=== PATIENT | female | born 1970 | race American Indian/Alaskan Native ===

== ENCOUNTER → 2022-08-01 10:44 | Outpatient (BNVA) | payer OTHER, SELFPAY | PROVIDERS: Visit Provider Psychiatry & Neurology Psychiatry | DX: Z13.89 Encounter for screening for other disorder (principal) ==

== ENCOUNTER → 2022-10-10 15:58 | Outpatient (BNVA) | payer OTHER, SELFPAY | PROVIDERS: PCP Family Medicine; Visit Provider Psychiatry & Neurology Psychiatry ==

== ENCOUNTER → 2023-04-11 11:21 | Outpatient (BNVA) | payer OTHER, SELFPAY | PROVIDERS: PCP Family Medicine; Visit Provider Psychiatry & Neurology Psychiatry ==

== ENCOUNTER 2023-04-15 09:44 | Emergency (ER) | payer OTHER, SELFPAY ==
--- NOTE | ~2023-04-15 | US_ITS ---
EXAMINATION: US ABDOMEN LIMITED CLINICAL INFORMATION: Right upper quadrant epigastric, back pain. COMPARISON: None available. TECHNIQUE: Real-time imaging of the right upper quadrant abdominal viscera. Limited visualization due to bowel gas. FINDINGS: PANCREAS: Limited visualization of pancreatic tail. Imaged portion of pancreatic body is unremarkable. LIVER: Right hepatic 1.3 x 0.9 x 1.5 cm cyst difficult to fully characterize due to artifact related to anterior location. Mildly heterogeneous hepatic echotexture can sometimes be seen with hepatocellular disease. Correlation with liver function tests recommended. GALLBLADDER: No gallstones. No gallbladder wall thickening. COMMON BILE DUCT: Normal in caliber measuring 0.2 cm in diameter. RIGHT KIDNEY: No hydronephrosis. No renal calculi. Limited visualization. The kidney measures 10.9 cm in maximum dimension. FREE FLUID: None. US/US abdomen limited IMPRESSION: Right hepatic 1.3 x 0.9 x 1.5 cm cyst difficult to fully characterize due to artifact related to anterior location. Mildly heterogeneous hepatic echotexture can sometimes be seen with hepatocellular disease. Correlation with liver function tests recommended.
--- NOTE | ~2023-04-15 | CT_ITS ---
EXAMINATION: CT ABDOMEN AND PELVIS WITH CONTRAST CLINICAL INFORMATION: Upper abdominal pain and history of gastric bypass COMPARISON: 04/30/2011 TECHNIQUE: Multidetector volumetric images were obtained from the superior aspect of the liver through the pubic symphysis following administration 85 mL of Omnipaque 350 intravenous contrast. Sagittal and coronal reformatted images were obtained on the technologist's workstation. Oral contrast: No This CT examination was performed using dose optimization techniques as appropriate, variously including the following: *Automated exposure control *Adjustment of mA and/or kV according to patient size (this includes techniques or standardized protocols for targeted exams where dose is matched to indication/reason for exam; i.e. extremities or head) *Use of iterative reconstruction technique DLP: 666mGy-cm FINDINGS: LUNG BASES: The visualized lung bases are unremarkable. LIVER, GALLBLADDER, AND BILIARY TREE: There is low-attenuation lesion in the right lobe of the liver measured 1.4 x 0.9 cm consistent with the appearance of hepatic cyst. No evidence of intrahepatic solid masses or ductal dilatation. 2 other smaller size low-attenuation lesions seen in the right lobe of the liver most likely small cysts. The gallbladder is unremarkable with no evidence of radiopaque gallstones, gallbladder wall thickening, or obvious pericholecystic inflammatory changes PANCREAS: Unremarkable. SPLEEN: Unremarkable. ADRENAL GLANDS: Unremarkable KIDNEYS AND URETERS: The small parapelvic cysts on the left. BLADDER: Unremarkable. GASTROINTESTINAL TRACT: Patient is status post gastric bypass surgery with no evidence of obstruction of anastomosis. Appendix is not seen. There are mild changes of colonic diverticulosis but no evidence of diverticulitis. ABDOMINAL WALL: No significant hernia is appreciated. LYMPH NODES: Normal. VASCULAR: Unremarkable. PELVIC VISCERA: There is fluid in the endometrial canal and in the cervix. Correlate with clinical history and pelvic ultrasound. There is prominence of left adnexa. OSSEOUS STRUCTURES: Unremarkable. CT/CT abdomen pelvis w IV con IMPRESSION: 1. Status post gastric bypass surgery with no evidence of bowel obstruction. 2. Fluid in the endometrial canal and cervix and prominence of left adnexa. Correlate with clinical history and pelvic ultrasound. 3. Small hepatic cysts. 4. Parapelvic cysts in the left kidney. Fleischner guidelines were followed.
[2023-04-15 09:46] VITALS: BP 163/79; PULSE 61; RESP 19; TEMP 36.6; O2SAT 98; BMI 30.9
--- NOTE | 2023-04-15 09:51 | ECG_ITS ---
Test Reason : epigastric pain Blood Pressure : / mmHG Vent. Rate : 058 BPM Atrial Rate : 058 BPM P-R Int : 174 ms QRS Dur : 092 ms QT Int : 438 ms P-R-T Axes : 040 040 041 degrees QTc Int : 429 ms Sinus bradycardia Otherwise normal ECG No previous ECGs available Referred By: Generic ED Physician Electronically Signed By:JORGE SUERO MD
[2023-04-15 10:19] LABS: MANUAL DIFF FLAG NO
[2023-04-15 10:20] LABS: Basophils Percent Auto 0.3 % (0-2); Eosinophils Percent Auto 0.1 % (0-4); Hematocrit 39.3 % (37.0-47.0); Hemoglobin 12.8 g/dl (12.0-16.0); Imm Gran Abs Auto 0.02 X10*3/uL (0.00-0.03); Imm Gran Pct Auto 0.3 % (0.0-0.4); Lymphocytes Absolute Auto 0.8 X10*3/uL (1.2-4.9); Lymphocytes Percent Auto 10.9 % (20-40); Mean Corpuscular HGB Conc 32.6 g/dl (31.0-35.0); Mean Corpuscular Hemoglobin 31.2 pg (27.0-33.0); Mean Corpuscular Volume 95.9 fL (80.0-98.0); Mean Platelet Volume 8.8 fL (9.4-12.3); Monocytes Absolute Auto 0.5 X10*3/uL (0.1-1.2); Monocytes Percent Auto 6.7 % (2-11); Neutrophils Absolute Auto 5.6 x10*3/uL (2.0-8.3); Neutrophils Percent Auto 81.7 % (45-73); Platelet Count 291 X10*3/uL (160-400); Red Cell Distribution Width 13.2 % (11.0-16.0); White Blood Count 6.9 X10*3/uL (4.8-10.8)
[2023-04-15 10:35] LABS: Alanine Aminotransferase 9 U/L (0-31); Albumin Level 4.2 g/dL (3.5-5.0); Alkaline Phosphatase 88 U/L (39-117); Anion Gap 8 (12-20); Aspartate Amino Transferase 15 U/L (5-31); Bilirubin Direct 0.1 mg/dL (0.0-0.5); Bilirubin Total 0.3 mg/dL (0.0-1.0); Blood Urea Nitrogen 10 mg/dL (9-16); Calcium 9.5 mg/dL (8.4-10.2); Carbon Dioxide 30 mmol/L (22-29); Chloride 106 mmol/L (96-108); Creatinine Clr Calc Pharmacy 100.3; Estimated Glomerular Filt Rate > 60; Glucose Random 104 mg/dL (60-115); Lipase 26 U/L (8-78); Potassium 3.6 mmol/L (3.3-5.1); Sodium 140 mmol/L (135-145); Total Protein 7.2 g/dL (6.5-8.0)
[2023-04-15 10:42] LABS: Troponin-I High Sensitivity < 2.7 ng/L (<3.5-17.0)
--- NOTE | 2023-04-15 16:02 | ED.GENADULT ---
HPI - General Adult General Chief complaint: Abdominal Pain Stated complaint: Gallbladder iss Time Seen by Provider: 04/15/23 15:47 History of Present Illness HPI narrative: The patient is a 52-year-old woman. She had gastric bypass surgery at [facility] 12 years ago. She thinks it might have been done by Dr. Haile. She says that last night she had a dinner of baked chicken and Kale. After dinner at around 21:00 she developed abdominal pain that persisted all night long. She thought that perhaps she was constipated. At 1 point this morning she had a large bowel movement and felt no better and ultimately she came to the emergency room. She says that when she arrived here her pain was a 10/10. It is since subsided somewhat to a 6/10. She has had nausea but no vomiting. No fever. She says she has never had pain like this before. She says that once she was treated for an ulcer after over using ibuprofen but she says the symptoms she had on this occasion were more severe than on the previous occasion. Related Data Home Medications Medication Instructions Recorded Confirmed gabapentin 100 mg capsule 200 mg PO BID 08/01/22 08/01/22 methocarbamol 500 mg tablet 500 mg PO TID PRN 08/01/22 08/01/22 oxycodone 5 mg tablet 5 - 10 mg PO Q6H PRN pain 08/01/22 08/01/22 pantoprazole 40 mg tablet,delayed 40 mg PO DAILY 08/01/22 08/01/22 release Previous Rx's Medication Instructions Recorded zolpidem 10 mg tablet 10 mg PO BEDTIME PRN insomnia #30 08/22/22 tabs oxcarbazepine 300 mg tablet 600 mg (2 x 300 mg) PO BEDTIME 90 01/28/23 days #180 tabs lamotrigine 150 mg tablet 300 mg (2 x 150 mg) PO BEDTIME 90 04/09/23 days #180 tabs zolpidem 6.25 mg tablet,extended 6.25 mg PO BEDTIME #30 tabs 04/11/23 release,multiphase famotidine 40 mg tablet 40 mg PO DAILY #14 tabs 04/15/23 Allergies Allergy/AdvReac Type Severity Reaction Status Date / Time No Known Allergies Allergy Verified 04/15/23 09:46 Review of Systems Review of Systems: Yes all other systems are reviewed and are negative [facility] Past Medical History Medical History (Updated 04/15/23 @ 19:06 by Shun Case MD) Bipolar 2 disorder Surgical History (Updated 03/27/23 @ 14:57 by Darlin Arcos) H/O gastric bypass Social History (System 03/27/23 @ 14:57 by Darlin Arcos) Household Members: Spouse Smoked in Last 30 Days: No Use of substances other than those prescribed or required for medical reasons: No Advance Directives: No Advance Directives Information Provided: No Physical Exam ED Vital Signs: Vital Signs - 24 hr 04/15/23 09:46 04/15/23 16:43 04/15/23 19:19 Temperature 98 F 98.4 F 98.1 F Pulse Rate 61 54 56 Respiratory Rate 19 18 Blood Pressure 163/79 H 136/64 150/68 H Pulse Oximetry 98 100 100 Oxygen Delivery Method Room Air Room Air Room Air BMI result Body Mass Index 30.9 Const Other: Patient is awake and alert. Does not appear obviously ill or in distress. HENMT Other: The appearance of the face is unremarkable. Mucous membranes moist. Eyes Other: Pupils are round equal, conjunctivae are clear Resp Other: Lungs are clear bilaterally, no respiratory distress or increased work of breathing Cardio Other: Regular rate and rhythm without murmur GI Other: The patient is tender across the upper abdomen. Maximal tenderness seems to be in the epigastrium. Lower abdomen is relatively nontender. Skin Other: Skin is dry and unremarkable Neuro Other: The patient is awake and alert with normal mental status and seems grossly neurologically intact Extrem Other: No peripheral edema Medications Administered Discontinued Medications Generic Name Dose Route Start Last Admin Trade Name Jakubq PRN Reason Stop Dose Admin Famotidine 40 mg 04/15/23 19:05 04/15/23 19:12 Famotidine 20 Mg Tablet PO 04/15/23 19:06 40 mg ONCE ONE Administration Sodium Chloride 1,000 mls @ 999 mls/hr 04/15/23 16:00 04/15/23 17:42 Ns IV 04/15/23 17:00 Infused .Q1H1M ROBYN Infusion Iohexol 85 ml 04/15/23 16:34 04/15/23 16:34 Iohexol 350 Mg/Ml 100 Ml Infus..Btl IV 04/15/23 16:35 85 ml ONCE ONE Administration Medical Decision Making Medical Decision Making [facility] Narrative: The patient is a 52-year-old woman who has a history of gastric bypass surgery 12 years ago. She presents with abdominal pain that started last night and which she describes as severe. The patient had labs and a right upper quadrant ultrasound done initially. These were unremarkable. The patient has some upper abdominal tenderness. Given her history of gastric bypass surgery and given that she says this is the worst episode of abdominal pain she has had since the surgery we also obtained a CT scan of the abdomen and pelvis to look for any possible complication of her surgery. CT scan did not show any acute findings related to her surgery. There are some findings related to the uterus and left adnexa but I think these are incidental findings. The patient will be started on famotidine in case this is gastritis. She should follow-up with her PCP. She should get a nonemergency ultrasound to follow-up on the findings in the pelvis on CT scan. She should return if worse. Lab Data 04/15/23 10:13 04/15/23 10:13 Labs: Lab Results 04/15/23 Range/Units 10:13 WBC 6.9 (4.8-10.8) X10*3/uL RBC 4.10 L (4.20-5.50) X10*6/uL Hgb 12.8 (12.0-16.0) g/dl Hct 39.3 (37.0-47.0) % MCV 95.9 (80.0-98.0) fL MCH 31.2 (27.0-33.0) pg MCHC 32.6 (31.0-35.0) g/dl RDW 13.2 (11.0-16.0) % Plt Count 291 (160-400) X10*3/uL MPV 8.8 L (9.4-12.3) fL Immature Gran % (Auto) 0.3 (0.0-0.4) % Neut % (Auto) 81.7 H (45-73) % Lymph % (Auto) 10.9 L (20-40) % [place] % (Auto) 6.7 (2-11) % Eos % (Auto) 0.1 (0-4) % Baso % (Auto) 0.3 (0-2) % Lymph # (Auto) 0.8 L (1.2-4.9) X10*3/uL [place] # (Auto) 0.5 (0.1-1.2) X10*3/uL Eos # (Auto) 0.0 (0.0-0.4) X10*3/uL Baso # (Auto) 0.0 (0.0-0.2) X10*3/uL Abs Immat Gran (auto) 0.02 (0.00-0.03) X10*3/uL Absolute Neuts (auto) 5.6 (2.0-8.3) x10*3/uL Absolute Nucleated RBC 0.000 (0.0-0.012) X10*3/uL Nucleated RBC % (auto) 0.0 (0.0-0.2) /100WBC Sodium 140 (135-145) mmol/L Potassium 3.6 (3.3-5.1) mmol/L Chloride 106 (96-108) mmol/L Carbon Dioxide 30 H (22-29) mmol/L Anion Gap 8 L (12-20) BUN 10 (9-16) mg/dL Creatinine 0.67 (0.5-1.4) mg/dL Estim Creat Clear Calc 100.3 Estimated GFR > 60 Random Glucose 104 (60-115) mg/dL Calcium 9.5 (8.4-10.2) mg/dL Total Bilirubin 0.3 (0.0-1.0) mg/dL Direct Bilirubin 0.1 (0.0-0.5) mg/dL AST 15 (5-31) U/L ALT 9 (0-31) U/L Alkaline Phosphatase 88 (39-117) U/L Troponin I High Sens < 2.7 (<3.5-17.0) ng/L Total Protein 7.2 (6.5-8.0) g/dL Albumin 4.2 (3.5-5.0) g/dL Lipase 26 (8-78) U/L Discharge Plan Discharge Clinical Impression: Acute upper abdominal pain Patient Disposition: Home, Self-Care Instructions: Gastritis (DC) Additional Instructions: Fortunately your testing in the emergency room today is very reassuring. There does not seem to be any dangerous process at work. Your pain may be related to a stomach acid problem. You may have a condition known as ?gastritis. ? Please take the famotidine prescribed once a day. This is an acid reducing medication. It might also be good for you to get some kind of xfxn-cde-obizqyf antacid like Pepto-Bismol which you can try on an as-needed basis. Please contact your primary care provider tomorrow to set up a follow-up appointment in the next week or 2 to discuss this further. Additionally you have some subtle findings of fluid in your uterus and near your left ovary. The significance of this finding on the CT scan is unclear. Recommendation is for an outpatient ultrasound in the next few weeks. Please discuss this with your primary care provider as well. Return to the emergency room if significantly worse. Prescriptions: New famotidine 40 mg tablet 40 mg PO DAILY Qty: 14 0RF No Action zolpidem 10 mg tablet 10 mg PO BEDTIME PRN (Reason: insomnia) Qty: 30 2RF oxcarbazepine 300 mg tablet 600 mg PO BEDTIME 90 Days Qty: 180 1RF lamotrigine 150 mg tablet 300 mg PO BEDTIME 90 Days Qty: 180 1RF gabapentin 100 mg capsule 200 mg PO BID methocarbamol 500 mg tablet 500 mg PO TID PRN oxycodone 5 mg tablet 5 - 10 mg PO Q6H PRN (Reason: pain) pantoprazole 40 mg tablet,delayed release (DR/EC) 40 mg PO DAILY zolpidem 6.25 mg tablet,ext release multiphase 6.25 mg PO BEDTIME Qty: 30 2RF Interventions: ED Discharge Assessment Last Done: 04/15/23 19:17 Discharge Date/Time: 04/15/23 19:29
[2023-04-15] MEDS: iohexoL 350 MG/ML 100 ML INFUS..BTL 85 ML IV (16:34)
[2023-04-15] MEDS: 0.9 % Sodium Chloride 1,000 ML 999 ML IV (16:41)
[2023-04-15 16:43] VITALS: BP 136/64; PULSE 54; TEMP 36.9; O2SAT 100
--- NOTE | 2023-04-15 16:45 | PC.NURSE ---
a&ox3, vss and up to date at this time. pt c/o 5/10 upper epigastric/abd pain. pt resting in stretcher in no apparent distress. IV fluids administered per provider order. respirations even and unlabored. pt awaiting results from CT at this time.
[2023-04-15] MEDS: Famotidine 20 MG TABLET 40 MG PO (19:12)
[2023-04-15 19:19] VITALS: BP 150/68; PULSE 56; RESP 18; TEMP 36.7; O2SAT 100
== END 2023-04-15 19:29 | disposition home or self-care (01) ==
PROVIDERS: Emergency Provider Emergency Medicine; PCP Family Medicine
DX: R10.13 Epigastric pain (principal); R00.1 Bradycardia, unspecified; R10.11 Right upper quadrant pain; Z79.899 Other long term (current) drug therapy; Z98.84 Bariatric surgery status
CPT/HCPCS: 36415; 74177; 76705; 80048; 80076; 83690; 84484; 85025; 93005; 96360; 99284; 99285; Q9967

== ENCOUNTER 2023-06-16 07:57 | Outpatient (REF) | payer OTHER, SELFPAY ==
--- NOTE | ~2023-06-16 | US_ITS ---
EXAMINATION: US PELVIS COMPLETE CLINICAL INFORMATION: Abnormal findings on prior CT COMPARISON: CT abdomen and pelvis 04/15/2023 TECHNIQUE: Transabdominal and transvaginal imaging was performed. FINDINGS: The uterus is of normal size and echogenicity measuring 8.0 x 3.9 x 4.6 cm. A regular homogeneous endometrium is identified measuring 0.5 cm. Nabothian cysts in the cervix. Complex fluid is noted within the endocervical canal. Both ovaries are of normal echogenicity. The right measures 2.0 x 1.2 x 1.5 cm for a volume of 1.8 mL. The left measures 5.1 x 4.6 x 2.7 cm for a volume of 33.3 mL and is remarkable for a 3.9 cm left ovarian cyst a single thin septation, almost certainly benign. There is no pelvic free fluid. US/US pelvic and transvaginal IMPRESSION: 1. Endometrium measures 5 mm in thickness with complex fluid noted within the endocervical canal, recommend correlation with any symptoms of postmenopausal bleeding and gynecologic evaluation and management. 2. A 3.9 cm left ovarian cyst with a single thin septation, almost certainly benign, recommend annual follow-up ultrasound.
== END 2023-06-16 07:58 | disposition home or self-care (01) ==
LOC: HO.US 07:57
PROVIDERS: PCP Family Medicine; Visit Provider Family Medicine
DX: R93.89 Abnormal findings on diagnostic imaging of other specified body structures (principal)
CPT/HCPCS: 76830; 76856

== ENCOUNTER → 2023-07-01 10:45 | Outpatient (BNV) | payer OTHER, SELFPAY | PROVIDERS: PCP Family Medicine; Visit Provider Radiology Diagnostic Radiology | DX: Z12.31 Encounter for screening mammogram for malignant neoplasm of breast (principal) | CPT/HCPCS: 77063; 77067 ==

== ENCOUNTER 2023-07-01 10:47 | Outpatient (REF) | payer OTHER, SELFPAY | END 2023-07-01 10:48 | disposition home or self-care (01) | LOC: HO.MAMMO 10:47 | PROVIDERS: PCP Family Medicine; Visit Provider Family Medicine | DX: Z12.31 Encounter for screening mammogram for malignant neoplasm of breast (principal) | CPT/HCPCS: 77063; 77067 ==

== ENCOUNTER 2023-07-18 11:30 | Outpatient (AMB) | payer OTHER, SELFPAY ==
--- NOTE | 2023-07-18 11:45 | MHC.OFFVISPS ---
Intake Intake Visit Reasons: depression Allergies No Known Allergies Allergy (Verified 04/15/23 09:46) HPI- Psychiatric Chief Complaint: depression HPI Narrative: Pt has generally doing ok work going well had incidental seen ovarian cyst getting endometrial biopsy some problems with sleep had transient dep sx but mostly ok wishes t try and taper off ambien as possible Past Psychiatric History: History of significant depression with agitation diagnosed bipolar question of ADD was previously on Seroquel Mental Status Exam Mental Status Exam Narrative: Mental Status Exam Narrative: Appearance: Casually dressed Behavior: Cooperative appropriate psychomotor: Within normal limits Speech: Normal volume and prosody Thought proccess logical and goal-directed Thought content: Future oriented no self-harming thoughts Mood: some anxiety ok Affect: Appropriate to mood SI:denies HI:denies VH/AH:none Delusions: None Insight/judgment: Good insight and judgment Memory/cog: Intact Assessment and Plan Assessment & Plan (1) Bipolar 2 disorder: Status: Acute Code(s): F31.81 - Bipolar II disorder (2) H/O gastric bypass: Status: Acute Code(s): Z98.84 - Bariatric surgery status Plan try and taper ambien cont lamictal oxcarbazine no manic or sig dep sx under some medical stress Medications: Changed From zolpidem 10 mg PO BEDTIME PRN 30 tabs 2RF insomnia To zolpidem 5 - 10 mg (0.5 - 1 x 10 mg) PO BEDTIME PRN 30 tabs 2RF insomnia Discontinued zolpidem ER Discontinued Reason: Doctor's Order 6.25 mg PO BEDTIME 30 tabs 2RF Counseling and coordination of Care Details: I spent [] minutes reviewing the record, seeing the patient and documenting in the medical record. Counseling provided to the patient/caregiver as outlined below. Addressed patient/caregiver concerns regarding current medication regime including effective adherence. Addressed patient/caregiver concerns regarding diagnosis and prognosis including accuracy of diagnosis, prognosis over time, impact of diagnosis. Addressed patient/caregiver concerns regarding impact of recent stressors. [facility] Medical History (Updated 04/16/23 @ 00:01 by Alejandro Sarabia) Bipolar 2 disorder Surgical History (Updated 03/27/23 @ 14:57 by Darlin Arcos) H/O gastric bypass Social History (System 03/27/23 @ 14:57 by Darlin Arcos) Household Members: Spouse Social History: pt working pt works for marijuana [employer] . 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 Family history bipolar disorder Substance History: History of alcohol abuse Coding Level of Care Code Tele Est Pt Level 4 (43556) Diagnoses Bipolar 2 disorder F31.81 H/O gastric bypass Z98.84
== END 2023-07-18 12:00 | disposition home or self-care (01) ==
LOC: HO.HOP 07-22 16:54
PROVIDERS: PCP Family Medicine; Visit Provider Psychiatry & Neurology Psychiatry
DX: F31.81 Bipolar II disorder (principal); Z98.84 Bariatric surgery status
CPT/HCPCS: 99214

== ENCOUNTER → 2023-07-18 11:30 | Outpatient (BNVA) | payer OTHER, SELFPAY | PROVIDERS: PCP Family Medicine; Visit Provider Psychiatry & Neurology Psychiatry ==

== ENCOUNTER → 2023-07-22 16:47 | Outpatient (BNVA) | payer OTHER, SELFPAY | PROVIDERS: PCP Family Medicine; Visit Provider Psychiatry & Neurology Psychiatry ==

== ENCOUNTER 2023-10-14 10:43 | Emergency (ER) | payer OTHER, SELFPAY ==
[2023-10-14 10:50] VITALS: BP 135/63; PULSE 65; RESP 17; TEMP 36.8; O2SAT 98; BMI 33.6
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
[2023-10-14] MEDS: Bacitracin Oint 0.9 GM PACKET 1 APPL TOPICAL (11:44)
[2023-10-14 11:58] VITALS: BP 135/63; PULSE 65; RESP 17; TEMP 36.8; O2SAT 98
== END 2023-10-14 12:01 | disposition home or self-care (01) ==
PROVIDERS: Emergency Provider Emergency Medicine; PCP Family Medicine
DX: T24.212A Burn of second degree of left thigh, initial encounter (principal); X17.XXXA Contact with hot engines, machinery and tools, initial encounter; Y93.9 Activity, unspecified; Y92.9 Unspecified place or not applicable; Y99.9 Unspecified external cause status
CPT/HCPCS: 16020; 99282; 99283

== ENCOUNTER 2023-10-18 10:31 | Emergency (ER) | payer OTHER, SELFPAY ==
--- NOTE | ~2023-10-18 | US_ITS ---
EXAMINATION: US VENOUS ULTRASOUND WITH DOPPLER LOWER EXTREMITY, LEFT CLINICAL INFORMATION: Posterior thigh pain COMPARISON: None available. TECHNIQUE: Ultrasound of the deep veins is performed from the hip to the calf with compression sonography and color and pulse Doppler assessment. Spectral analysis with color-flow imaging is performed. FINDINGS: There is normal venous compression and respiratory variation and augmented flow. The visualized common femoral vein, superficial femoral vein, profunda femoral vein, popliteal vein, and the trifurcation region shows no evidence of deep venous thrombosis. There is no significant popliteal fossa cyst. If the patient's symptoms persist, followup ultrasound in 5 days 7 days might be of value to exclude proximal propagation from a non-visualized calf vein. US/US venous duplex LE LT IMPRESSION: No DVT demonstrated in the left lower extremity.
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
[2023-10-18 11:12] VITALS: BP 147/67; PULSE 55; RESP 16; TEMP 36.8; O2SAT 100; BMI 33.1
[2023-10-18 11:32] LABS: MANUAL DIFF FLAG NO
[2023-10-18 11:34] LABS: Basophils Absolute Auto 0.1 X10*3/uL (0.0-0.2); Basophils Percent Auto 0.8 % (0-2); Eosinophils Absolute Auto 0.1 X10*3/uL (0.0-0.4); Eosinophils Percent Auto 1.6 % (0-4); Hematocrit 39.5 % (37.0-47.0); Imm Gran Abs Auto 0.01 X10*3/uL (0.00-0.03); Imm Gran Pct Auto 0.2 % (0.0-0.4); Lymphocytes Absolute Auto 1.4 X10*3/uL (1.2-4.9); Mean Corpuscular HGB Conc 32.9 g/dl (31.0-35.0); Mean Corpuscular Hemoglobin 31.2 pg (27.0-33.0); Mean Corpuscular Volume 94.7 fL (80.0-98.0); Mean Platelet Volume 8.9 fL (9.4-12.3); Monocytes Absolute Auto 0.6 X10*3/uL (0.1-1.2); Monocytes Percent Auto 8.8 % (2-11); Neutrophils Absolute Auto 4.2 x10*3/uL (2.0-8.3); Neutrophils Percent Auto 66.6 % (45-73); Platelet Count 347 X10*3/uL (160-400); Red Blood Count 4.17 X10*6/uL (4.20-5.50); Red Cell Distribution Width 13.2 % (11.0-16.0); White Blood Count 6.3 X10*3/uL (4.8-10.8)
[2023-10-18 11:50] LABS: Alanine Aminotransferase 10 U/L (0-31); Albumin Level 4.6 g/dL (3.5-5.0); Alkaline Phosphatase 85 U/L (39-117); Anion Gap 12 (12-20); Aspartate Amino Transferase 16 U/L (5-31); Bilirubin Total 0.3 mg/dL (0.0-1.0); Blood Urea Nitrogen 14 mg/dL (9-16); Calcium 10.5 mg/dL (8.4-10.2); Carbon Dioxide 29 mmol/L (22-29); Chloride 106 mmol/L (96-108); Creatinine Clr Calc Pharmacy 90.5; Estimated Glomerular Filt Rate > 60; Glucose Random 89 mg/dL (60-115); Potassium 3.9 mmol/L (3.3-5.1); Sodium 143 mmol/L (135-145); Total Protein 7.8 g/dL (6.5-8.0)
[2023-10-18 12:00] VITALS: BP 135/66; PULSE 56; RESP 18; TEMP 35.6; O2SAT 97
--- NOTE | 2023-10-18 15:08 | PC.NURSE ---
ultrasound being completed at this time.
[2023-10-18 15:43] VITALS: PULSE 63; RESP 19; TEMP 36.7; O2SAT 97
[2023-10-18 15:46] VITALS: BP 135/66; PULSE 63; RESP 19; TEMP 36.7; O2SAT 97
== END 2023-10-18 15:46 | disposition home or self-care (01) ==
PROVIDERS: Physician Assistant Medical; Emergency Provider Student in an Organized Health Care Education/Training Program; PCP Family Medicine
DX: Z48.00 Encounter for change or removal of nonsurgical wound dressing (principal); M79.652 Pain in left thigh; L03.116 Cellulitis of left lower limb
CPT/HCPCS: 36415; 80053; 85025; 87040; 93971; 99283; 99284

== ENCOUNTER 2024-01-22 11:06 | Outpatient (AMB) | payer OTHER, SELFPAY ==
--- NOTE | 2024-01-22 11:29 | A.OFFPSYCH_ITS ---
Intake Intake Visit Reasons: depression Allergies gluten Allergy (Verified 10/18/23 11:15) Gastrointestinal Upset grape Allergy (Verified 10/18/23 11:15) Numbness NSAIDS (Non-Steroidal Anti-Inflamma Adverse Reaction (Verified 10/18/23 11:15) Gastrointestinal Hemorrhage HPI- Psychiatric Chief Complaint: depression HPI Narrative: Patient seen psychiatric follow-up patient was able to wean off of Ambien over the past few months. She had also been able to wean off oxycodone which she had been on status post knee surgery. Patient's mood has generally been stable no significant depressive or manic symptoms things going quite well on her marriage no new medical problems she continues to work for a [employer]. She continues on oxcarbazepine and Lamictal Past Psychiatric History: History of significant depression with agitation diagnosed bipolar question of ADD was previously on Seroquel Subjective Subjective Subjective Medication Compliance: Yes Side effects from medications: No Review of Systems Review of Systems neck pain hot flashes osteoarthritis has fibromyalgia periods of fatigue Mental Status Exam Mental Status Exam Narrative: Mental Status Exam Narrative: Appearance: Casually dressed Behavior: Cooperative appropriate psychomotor: Within normal limits Speech: Normal volume and prosody Thought proccess logical and goal-directed Thought content: Future oriented no self-harming thoughts some focused on arthritis fibromyalgia question Focused on healthy choices in her life Mood: some anxiety ok Affect: Appropriate to mood SI:denies HI:denies VH/AH:none Delusions: None Insight/judgment: Good insight and judgment Memory/cog: Intact Assessment and Plan Assessment & Plan (1) Bipolar 2 disorder: Status: Acute Code(s): F31.81 - Bipolar II disorder (2) H/O gastric bypass: Status: Acute Code(s): Z98.84 - Bariatric surgery status Plan Patient status post bypass check CBC Chem profile iron levels B12 folate oxcarbazepine can contribute to hyponatremia patient aware. Mood stable continue Lamictal oxcarbazepine feels generally stable at work and at home working on healthier choices for herself and aware potential addiction tendencies in herself Medications: Refilled lamotrigine 300 mg (2 x 150 mg) PO BEDTIME 180 tabs 1RF oxcarbazepine 600 mg (2 x 300 mg) PO BEDTIME 180 tabs 1RF 90 days Discontinued zolpidem Discontinued Reason: Patient no longer taking 5 - 10 mg (0.5 - 1 x 10 mg) PO BEDTIME PRN 30 tabs 2RF insomnia Orders: Orders Comprehensive Met. Panel Today D64.9 - Anemia, unspecified, E61.1 - Iron deficiency, F31.81 - Bipolar II disorder, Z98.84 - Bariatric surgery status Lamotrigine Lamictal Today D64.9 - Anemia, unspecified, E61.1 - Iron deficiency, F31.81 - Bipolar II disorder, Z98.84 - Bariatric surgery status IRON PROFILE Today D64.9 - Anemia, unspecified, E61.1 - Iron deficiency, F31.81 - Bipolar II disorder, Z98.84 - Bariatric surgery status Vitamin B12 and Folate Today D64.9 - Anemia, unspecified, E61.1 - Iron deficiency, F31.81 - Bipolar II disorder, Z98.84 - Bariatric surgery status Complete Blood Count Auto Diff Today D64.9 - Anemia, unspecified, E61.1 - Iron deficiency, F31.81 - Bipolar II disorder, Z98.84 - Bariatric surgery status TSH reflex Free T4 Today D64.9 - Anemia, unspecified, E61.1 - Iron deficiency, F31.81 - Bipolar II disorder, Z98.84 - Bariatric surgery status Counseling and coordination of Care Medication management counseling: Effectiveness, Side effects and Dosing range Diagnosis and Prognosis Counseling: Adequacy of current interventions Details: I spent [] minutes reviewing the record, seeing the patient and documenting in the medical record. Counseling provided to the patient/caregiver as outlined below. Addressed patient/caregiver concerns regarding current medication regime including effective adherence. Addressed patient/caregiver concerns regarding diagnosis and prognosis including accuracy of diagnosis, prognosis over time, impact of diagnosis. Addressed patient/caregiver concerns regarding impact of recent stressors. 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 Family history bipolar disorder Substance History: History of alcohol abuse Coding Level of Care Code Est Pt Level 3 (05619) Therapy 30m w/E&M (31042) Diagnoses Bipolar 2 disorder F31.81 H/O gastric bypass Z98.84
== END 2024-01-22 11:43 | disposition home or self-care (01) ==
LOC: HO.HOP 11:06
PROVIDERS: PCP Family Medicine; Visit Provider Psychiatry & Neurology Psychiatry
DX: F31.81 Bipolar II disorder (principal); Z98.84 Bariatric surgery status
CPT/HCPCS: 90833; 99213

== ENCOUNTER → 2024-01-22 11:06 | Outpatient (BNVA) | payer OTHER, SELFPAY | PROVIDERS: PCP Family Medicine; Visit Provider Psychiatry & Neurology Psychiatry ==

== ENCOUNTER 2024-04-16 14:28 | Outpatient (REF) | payer OTHER, SELFPAY ==
--- NOTE | ~2024-04-16 | US_ITS ---
EXAMINATION: US RETROPERITONEAL COMPLETE (RENAL) CLINICAL INFORMATION: Abdominal pain. Evaluate for renal stones. COMPARISON: CT abdomen/pelvis dated 04/15/2023. TECHNIQUE: Real-time imaging of the kidneys and bladder. FINDINGS: RIGHT KIDNEY: 11.1 x 5 x 5.7 cm (SAG x AP x TRV). The kidney is normal in size, contour, and echogenicity. Renal cortical thickness is normal. No calculi or focal parenchymal lesions. Mild prominence of the renal pelvis without significant hydronephrosis. LEFT KIDNEY: 12.1 x 5.1 x 6.3 cm (SAG x AP x TRV). The kidney is normal in size, contour, and echogenicity. Renal cortical thickness is normal. No calculi or focal parenchymal lesions. No hydronephrosis. BLADDER: Well distended and normal. Bilateral ureteral jets are demonstrated. Prevoid bladder volume is 245 mL. Postvoid bladder volume is 7 mL. US/US retroperitoneal comp IMPRESSION: 1. Mild prominence of the right renal pelvis without significant hydronephrosis. No right-sided nephrolithiasis. 2. No left-sided hydronephrosis or nephrolithiasis. 3. Sonographically unremarkable urinary bladder without significant postvoid residual. Electronically signed by: Evaristo Anthony MD 04/18/2024 06:43 PM HILDA
== END 2024-04-16 14:29 | disposition home or self-care (01) ==
LOC: HO.HMGCX 14:28
PROVIDERS: PCP Family Medicine; Visit Provider Family Medicine
DX: R10.9 Unspecified abdominal pain (principal)
CPT/HCPCS: 76770

== ENCOUNTER 2024-05-05 10:36 | Outpatient (AMB) | payer OTHER, SELFPAY ==
--- NOTE | 2024-05-05 11:01 | MHC.OFFVISPS ---
Intake Intake Visit Reasons: depression Allergies gluten Allergy (Verified 10/18/23 11:15) Gastrointestinal Upset grape Allergy (Verified 10/18/23 11:15) Numbness NSAIDS (Non-Steroidal Anti-Inflamma Adverse Reaction (Verified 10/18/23 11:15) Gastrointestinal Hemorrhage Medication List - Last Reconciled 05/05/24 by Aleksandar Chavez MD amoxicillin-pot clavulanate 875-125 mg 1 tab PO BID famotidine 40 mg PO DAILY gabapentin 300 mg PO DAILY lamotrigine 300 mg (2 x 150 mg) PO BEDTIME methocarbamol 500 mg PO TID PRN oxcarbazepine 600 mg (2 x 300 mg) PO BEDTIME 90 days pantoprazole 40 mg PO DAILY HPI- Psychiatric Chief Complaint: depression HPI Narrative: Pt seen in psych f/u pt trying to grow take care of herself better and to grow . Has chronic tax issues with the state. Cont on lamictal oxcarbazine. Has been trying to take care of herself better physically. Past Psychiatric History: History of significant depression with agitation diagnosed bipolar question of ADD was previously on Seroquel Mental Status Exam Mental Status Exam Narrative: Mental Status Exam Narrative: Appearance: Casually dressed Behavior: Cooperative appropriate psychomotor: Within normal limits Speech: Normal volume and prosody Thought proccess logical and goal-directed Thought content: Future oriented no self-harming thoughts some focused on arthritis fibromyalgia question Focused on healthy choices in her life Mood: some anxiety ok Affect: Appropriate to mood SI:denies HI:denies VH/AH:none Delusions: None Insight/judgment: Good insight and judgment Memory/cog: Intact Assessment and Plan Assessment & Plan (1) Bipolar 2 disorder: Status: Acute Code(s): F31.81 - Bipolar II disorder (2) H/O gastric bypass: Status: Acute Code(s): Z98.84 - Bariatric surgery status Plan pt feeling better trying to live a healthier life with her partner no medication changes noted Medications: Refilled oxcarbazepine 600 mg (2 x 300 mg) PO BEDTIME 180 tabs 1RF 90 days lamotrigine 300 mg (2 x 150 mg) PO BEDTIME 180 tabs 1RF Counseling and coordination of Care Pt. Self Management counseling: Mindfulness and Nutrition education and improvement Medication management counseling: Effectiveness, Side effects and Dosing range Diagnosis and Prognosis Counseling: Impact of diagnosis on life functions and Adequacy of current interventions Details: I spent [] minutes reviewing the record, seeing the patient and documenting in the medical record. Counseling provided to the patient/caregiver as outlined below. Addressed patient/caregiver concerns regarding current medication regime including effective adherence. Addressed patient/caregiver concerns regarding diagnosis and prognosis including accuracy of diagnosis, prognosis over time, impact of diagnosis. Addressed patient/caregiver concerns regarding impact of recent stressors. 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 Family history bipolar disorder Substance History: History of alcohol abuse Coding Level of Care Code Est Pt Level 4 (57958) Diagnoses Bipolar 2 disorder F31.81 H/O gastric bypass Z98.84
--- OUTSIDE RECORDS SUMMARY | 2024-05-06 00:36 | XMS_ITS | Continuity of Care Document ---
Author Organization [facility] Address [address] [place] [address] Insurance Providers Payer Plan Claims Address Claims Phone Policy Number Group Number Relation Employer Guarantor Name Guarantor Guarantor Address Guarantor Phone Amadou woodard [place] [id number] Paul Joualatl [address] [place] [id number] AMADOU Akin CLAYTON LAUREANO PA [address] [facility], [address] [id number] Paul Mims Apualatl [address] [place] [id number] AMADOU LAUREANO PA ONE [facility], [address] [address] [id number] Paul Mims Apualatl [address] [place] [id number] Problems Condition ICD9 code ICD10 code SNOMED code Start Date End Date S tatus Encounter for screening for other metabolic disorders Z13.228 Results No Results Allergies, adverse reactions, alerts No known allergies and adverse reactions Medications No administered medications reported Vital Signs No vital signs reported Social History No smoking Hx information available
== END 2024-05-05 12:05 | disposition home or self-care (01) ==
LOC: HO.HOP 10:36
PROVIDERS: PCP Family Medicine; Visit Provider Psychiatry & Neurology Psychiatry
DX: F31.81 Bipolar II disorder (principal); Z98.84 Bariatric surgery status
CPT/HCPCS: 99214

== ENCOUNTER 2024-08-30 10:34 | Outpatient (AMB) | payer OTHER, SELFPAY ==
--- NOTE | 2024-08-30 10:38 | MHC.OFFVISPS ---
Intake Intake Visit Reasons: depression Allergies gluten Allergy (Verified 10/18/23 11:15) Gastrointestinal Upset grape Allergy (Verified 10/18/23 11:15) Numbness NSAIDS (Non-Steroidal Anti-Inflamma Adverse Reaction (Verified 10/18/23 11:15) Gastrointestinal Hemorrhage Medication List - Last Reconciled 08/30/24 by Aleksandar Chavez MD amoxicillin-pot clavulanate 875-125 mg 1 tab PO BID famotidine 40 mg PO DAILY gabapentin 300 mg PO DAILY lamotrigine 300 mg (2 x 150 mg) PO BEDTIME methocarbamol 500 mg PO TID PRN oxcarbazepine 600 mg (2 x 300 mg) PO BEDTIME 90 days pantoprazole 40 mg PO DAILY HPI- Psychiatric Chief Complaint: depression HPI Narrative: Pt seen in f/u has had acid reflux s/p gastric bypass has gained wt s/p bypass . When son 14 he had child he now has he has child support granddaughter is now age 19 has developed a relationship. Mood stable no dep or mixed states. Has felt more stable gemerally sleep has improved. Stable on trileptal and lamictal. Very close with her mother who has been a strong woman survivor. Continues on Lamictal and Trileptal has been able to taper off of zolpidem Past Psychiatric History: History of significant depression with agitation diagnosed bipolar question of ADD was previously on Seroquel Mental Status Exam Mental Status Exam Narrative: Mental Status Exam Narrative: Appearance: Casually dressed Behavior: Cooperative appropriate psychomotor: Within normal limits Speech: Normal volume and prosody Thought proccess logical and goal-directed Thought content: Future oriented no self-harming thoughts some focused on getting life on a better track Focused on healthy choices in her life Mood: some anxiety ok Affect: Appropriate to mood SI:denies HI:denies VH/AH:none Delusions: None Insight/judgment: Good insight and judgment Memory/cog: Intact Assessment and Plan Assessment & Plan (1) GERD (gastroesophageal reflux disease): Status: Acute Code(s): K21.9 - Gastro-esophageal reflux disease without esophagitis (2) Bipolar 2 disorder: Status: Acute Code(s): F31.81 - Bipolar II disorder Medications: Refilled oxcarbazepine 600 mg (2 x 300 mg) PO BEDTIME 180 tabs 1RF 90 days lamotrigine 300 mg (2 x 150 mg) PO BEDTIME 180 tabs 1RF Counseling and coordination of Care Details-Self Mgmt counseling: Issues related to making healthy choices at work tendency to try to be more controlling to feel more recognition Details-Med Mgmt counseling: issues related to gastric bypass and gerd 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 Counseling provided to the patient/caregiver as outlined below. Addressed patient/caregiver concerns regarding current medication regime including effective adherence. Addressed patient/caregiver concerns regarding diagnosis and prognosis including accuracy of diagnosis, prognosis over time, impact of diagnosis. Addressed patient/caregiver concerns regarding impact of recent stressors. 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 Family history bipolar disorder Substance History: History of alcohol abuse Coding Level of Care Code Est Pt Level 3 (53290) Therapy 30m w/E&M (10586) Diagnoses GERD (gastroesophageal reflux disease) K21.9 Bipolar 2 disorder F31.81
--- OUTSIDE RECORDS SUMMARY | 2024-08-30 12:27 | XMS_ITS | Clinical Summary ---
Author Organization [facility] Address [address] [place] [address] Care Team Providers Care Brick Catcher Name Role Phone Jazmine Nath MD Primary Care Provider + [phone] Allergies No known active allergies Medications Medication Sig Dispensed Refills Start Date End Date Status OXcarbazepine (TRILEPTAL) 300 MG tablet Take 1 tablet (300 mg total) by mouth 2 (two) times a day. 0 Active methocarbamol (ROBAXIN) 500 MG tablet Take 1 tablet (500 mg total) by mouth 2 (two) times a day. 0 Active lamoTRIgine (LAMICTAL) 150 MG tablet Take 1 tablet (150 mg total) by mouth 2 (two) times a day. 0 Active zolpidem (AMBIEN) 10 MG tablet Take 1 tablet (10 mg total) by mouth every night at bedtime as needed for sleep. 0 Active gabapentin (NEURONTIN) 300 MG capsule Take 1 capsule (300 mg total) by mouth 3 (three) times a day. 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 01/21/2017 Morbid obesity due to excess calories 01/21/2017 H/O gastric bypass 01/21/2017 Anemia due to vitamin B12 deficiency 01/21/2017 Bipolar affective disorder, currently depressed, mild 01/21/2017 Social History Tobacco Use Types Packs/Day Years Used Date Smoking Tobacco: Never Smokeless Tobacco: Never Alcohol Use Standard Drinks/Week Comments Yes 0 (1 standard drink = 0.6 oz pur e alcohol) Social Sex and Gender Information Value Date Recorded Sex Assigned at Female 06/06/2022 4:05 PM EST Gender Identity Not on file Sexual Orientation Not on file Job Start Date Occupation Industry Not on file Not on file Not on file Last Filed Vital Signs Vital Sign Reading Time Taken Comments Blood Pressure 106/59 06/20/2022 2:07 PM EST Pulse 58 06/20/2022 2:07 PM EST Temperature 36.2 ??C (97.2 ??F) 06/20/2022 2:07 PM ES T Respiratory Rate 18 06/20/2022 2:07 PM EST Oxygen Saturation 100% 06/20/2022 2:07 PM EST Inhaled Oxygen Concentration - - Weight 88.5 kg (195 lb 1.7 oz) 06/10/2022 2:11 P M EST Height 162.6 cm (5' 4 ) 05/08/2018 2:15 PM EST Body Mass Index 33.49 05/08/2018 2:15 PM EST Plan of Treatment Health Maintenance Due Date Last Done Comments Hepatitis B Vaccines (1 of 3 - 3-dose series) 1969 Hepatitis C Screening 1969 COVID-19 Vaccine (#1) 1969 Depression Screening 1981 Preventative Health Evaluation 1987 DTap / Tdap / Td (1 - Tdap) 1988 Cervical Cancer Screening (P ap Smear) 1990 Colon Cancer Screening (Colonoscopy) 2014 Breast Cancer Screening (Mammogram) 2019 Shingrix-Zoster Vaccine (1 of 2) 2019 Influenza Vaccine (#1) 2024 Pneumococcal Vaccine Aged Out No long er eligible based on patient's age to complete this topic RSV Ped < 20 months Aged Out No longe r eligible based on patient's age to complete this topic Care Teams Brick Catcher Relationship Specialty Start Date End Date Jazmine Nath MD PCP - General Family Medicine 01/21/17
--- OUTSIDE RECORDS SUMMARY | 2024-08-30 12:27 | XMS_ITS | Clinical Summary ---
Author Organization [facility] Address [address] [place] [address] Care Team Providers Care Crown Presser Name Role Phone Jazmine Nath MD Primary Care Provider + Medical History Medical History Date Comments Palpitations 07/15/2011 DX:Palpitations Bipolar 1 disorder (CMS/HCC) 07/15/2011 DX: Bipolar 1 disorder (HCC) Obesity, unspecified 07/15/2011 DX:Obesity, unspecified Family History Medical History Relation Name Comments Other: cardiomyopathy Maternal Grandmother early Other: sudden cardiac Uncle 1 young, OR vs Vfib Relation Name Status Comments Maternal Grandmother Uncle 1 Uncle 2 Social History Tobacco Use Types Packs/Day Years Used Date Smoking Tobacco: Never Alcohol Use Standard Drinks/Week Comments Not Asked 0 (1 standard drink = 0.6 oz pur e alcohol) Comments Unknown Sex and Gender Information Value Date Recorded Sex Assigned at Not on file Legal Sex Female 10:05 AM EST Gender Identity Not on file Sexual Orientation Not on file Obstetrics History Plan of Treatment Health Maintenance Due Date Last Done Comments Breast Cancer Screening 1969 DTaP,Tdap,and Td Vaccines (1 - Tdap) 1988 Hepatitis B Vaccines (1 of 3 - 19+ 3-dose series) 1988 Cervical Cancer Screening: P ap Smear 1990 Pneumococcal Vaccine: 50+ Ye ars (1 of 1 - PCV) 2019 Zoster Vaccines (1 of 2) 2019 Cholesterol Screening (Lipid Panel) 06/24/2023 Colorectal Cancer Screening: Colonoscopy 06/24/2023 Depression Screening 06/24/2023 HIV Screening 06/24/2023 Hepatitis C Screening 06/24/2023 Social Influencers of Health Screening 06/24/2023 COVID-19 Vaccine ( - 2023-2 5 season) 2024 Influenza Vaccine (#1) 2024 HIB Vaccines Aged Out No longer eligi ble based on patient's age to complete this topic HPV Vaccines Aged Out No longer eligi ble based on patient's age to complete this topic Hepatitis A Vaccines Aged Out No long er eligible based on patient's age to complete this topic IPV Vaccines Aged Out No longer eligi ble based on patient's age to complete this topic MMR Vaccines Aged Out No longer eligi ble based on patient's age to complete this topic Meningococcal ACWY Vaccine Aged Out N o longer eligible based on patient's age to complete this topic Meningococcal B Vacine Aged Out No lo nger eligible based on patient's age to complete this topic Pneumococcal Vaccine: Pediat rics (0 to 5 Years) and At-Risk Patients (6 to 64 Years) Aged Out No longer eligible b ased on patient's age to complete this topic RSV Immunization Patients Un cleopatra 20 months Aged Out No longer eligible b ased on patient's age to complete this topic Varicella Vaccines Aged Out No longer eligible based on patient's age to complete this topic Care Teams Crown Presser Relationship Specialty Start Date End Date Jazmine Nath MD [address] [place] [address] PCP - General Family Medicine 01/21/17
--- OUTSIDE RECORDS SUMMARY | 2024-08-30 12:27 | XMS_ITS | Data Portability ---
Author Organization [facility], [facility] Address [address] [place] [address] Care Team Providers Care Cupola Charger Name Role Phone PARISH JULIA Primary Care Provider Assessment Encounter Date Assessment Date Assessment LastModified by Organization Details LastModified Time 02/18/2024 02/18/2024 A/ R trigger thumb after 1 prior cortisone injection in April 2023, recurrent P/we reviewed the pathophysiology of this problem and the recommended treatment plan moving forward. She understands that a second injection can be performed safely today, but if symptoms are recurrent after the second injection, the next step in treatment will be a trigger thumb release surgery. We have discussed the postoperative recovery course for the recommended surgery. Risks of surgery include but are not limited to: Infection, bleeding, damage normal tissues, need for future surgeries, and recurrent or recalcitrant symptoms after surgery. Questions asked and answered to the patient's satisfaction; surgery to be scheduled with my loan secretary if symptoms return after the second injection, she has been provided with my loan secretary's contact information and will call to schedule right trigger thumb release. stephenie Not available 02/18/2024 09:20:02 Plan of Treatment Reminders Order Date Submit Date Provider Last Modified By Organization Details Last Modified Time Details Appointments None record ed. Lab None record ed. Referral None record ed. Procedures None record ed. Surgeries None record ed. Imaging XR, knee, 3 view - room 214 rt knee 3v cw 025 06/11/19 25 [email or web address] [facility], [address], [place], [address], 15:26:57 Medication Orders None record ed. Patient TargetsNo targets recorded. Patient InstructionsNo instructions recorded. Reason for Referral None Reported. Results Created Date Observation Date Name Description Value Unit Range Abnormal Flag Note LastModifiedBy Organization Detail LastModifiedTime 01/24/20 24 08/31/2021 imagi ng/di agnos tic resul t No observ ation record ed. [email or web address] Not Available 12/26 08:04:49 01/24/20 24 09/16/2021 imagi ng/di agnos tic resul t No observ ation record ed. [email or web address] Not Available 12/26 08:04:50 01/24/20 24 06/24/2022 imagi ng/di agnos tic resul t No observ ation record ed. [email or web address] Not Available 12/26 08:05:31 06/11/19 25 06/11/2024 XR, knee, 3 view [email or web address]:/ [email or web address] ?Encry pted=s hAaTro YD8dLq bEUv6g %2BXZw aYqtaq 0bqfl% 2Fg9IQ a4ajBk vP9nXo QUaueC m3YtLR FvZlgJ JJ8mAn HZtai3 9a8537 AC0Kqb 3iCV6K jKiQtr MwF INTERFACE [facility] [address] [facility] [facility] [address], [place], [address], 06/11/2024 09:22:09 06/11/19 25 06/11/2024 XR, knee, 3 view [email or web address]:/ [email or web address] ?Encry pted=s hAaTro YD8dLq bEUv6g %2BXZw aYqtaq 0bqfl% 2Fg9IQ a4ajBk vP9nXo QUaueC m3YtLR FvZlgJ JJ8mAn HZtai3 7i8677 AC0Kqb 3iCV6K jKiQtr MwF INTERFACE [facility] [address] [facility] [address], [place], [address], 06/11/2024 09:22:11 Result Notes None recorded. 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 Procedures Surgical History Date Name Laterality Status Provider Name and Address Organization Details Recorded Time Trigger Finger Kenalog Injection completed Flavia Justice MD [address], [place], [address], [facility] 02/18/2024 09:18:41 Imaging Results Imaging Date Name Status LastModified by Organiz ation Details LastModified Time 08/31/2021 imaging/diag nostic result completed Information not available 01/24/2024 08:04:49 09/16/2021 imaging/diag nostic result completed Information not available 01/24/2024 08:04:50 06/24/2022 imaging/diag nostic result completed Information not available 01/24/2024 08:05:31 06/11/2024 XR, knee, 3 view completed INTER[facility] [address], [place], [address], 06/11/2024 09:22:09 06/11/2024 XR, knee, 3 view completed [facility] [address], [place], [address], 06/11/2024 09:22:11 Procedure Notes None recorded. Medical Equipment None Reported. Allergies Allergen ID Allergen Name Allergen Category Reaction Reaction Severity Criticality Documentation Date Start Date Code Code System Note Provider Name and Address Organization Details Recorded Time 58720 wheat gluten extract food Not available Not available Not available 07/28/20232010 62674 81 RxNorm Not Available [facility] 12:33:13 Medications Name Sig Start Date Stop Date Status Note LastModified by Organization Details LastModified Time methocarbam ol 500 mg tablet TAKE 1 TABLET BY MOUTH THREE TIMES A DAY NEEDED 06/11 completed Not Available Not Available Not Available clotrimazol e 10 mg manny LET 1 MANNY DISSOLVE IN MOUTH UP TO 4 TIMES A DAY FOR UP TO 2 WKS OR UNTIL RESOLUTIO N 06/11 completed Not Available Not Available Not Available lamotrigine 150 mg tablet TAKE TWO TABLETS BY MOUTH DAILY AT BEDTIME active Not Available Not Available No t Available paroxetine 10 mg tablet TAKE 1 TABLET BY MOUTH EVERY DAY active Not Available Not Available No t Available azithromyci n 250 mg tablet TAKE 2 TABLETS BY MOUTH TODAY, THEN TAKE 1 TABLET DAILY FOR 4 DAYS DIRECTED 06/11 completed Not Available Not Available Not Available oxcarbazepi ne 300 mg tablet TAKE 2 TABLETS BY MOUTH AT BEDTIME active Not Available Not Available No t Available amoxicillin 500 mg tablet TAKE 1 TABLET BY MOUTH EVERY 12 HOURS FOR 10 DAYS 06/11 completed Not Available Not Available Not Available pseudoephed rine-guaife nesin ER 80-700 mg tablet,exte nded release DO NOT DRIVE WHILE ON THIS MEDICATIO N 06/11 completed Statu s: 'Curr ent'; Not Available Not Available Not Available nystatin-tr iamcinolone 100,000 unit/g-0.1 % topical cream APPLY TO AFFECTED AREA SPRAINGLY 2 TO 4 TIMES A DAY STOP NCE RESOULATI ON ACHEVIED active Not Available Not Available No t Available gabapentin 100 mg capsule TAKE THREE CAPSULES BY MOUTH EVERY DAY IN THE MORNING AND TAKE TWO CAPSULES BY MOUTH EVERY DAY IN THE EVENING active Not Available Not Available No t Available zolpidem 10 mg tablet TAKE 1/2 - 1 TABLET BY MOUTH AT BEDTIME NEEDED FOR INSOMNIA active Not Available Not Available No t Available amoxicillin 875 mg-potassiu m clavulanate 125 mg tablet TAKE 1 TABLET BY MOUTH TWICE A DAY 06/11 completed Not Available Not Available Not Available zolpidem ER 6.25 mg tablet,exte nded release,mul tiphase TAKE ONE TABLET BY MOUTH EVERY EVENING AT BEDTIME active Not Available Not Available No t Available oxycodone HCl-oxycodo ne-ASA as directed 1 pills q 4-[address] while taikn this medicatio n 08/08 completed Statu s: 'Disc ontin ued'; Not Available Not Available Not Available Paxlovid 300 mg (150 mg x 2)-100 mg tablets in a dose pack TAKE THREE TABLETS BY MOUTH TWICE A DAY 06/11 completed Not Available Not Available Not Available Vitals Date Recorded Body height Body mass index (BMI) Body weight Provider Name and Address Organization Details Last Updated DateTime 02/18/2024 159.385 cm 33.4 kg/m2 43988.77 g DAVE ADAME [facility] 02/18/2024 08:54:46 Date Recorded Body height Body mass index (BMI) Body weight Provider Name and Address Organization Details Last Updated DateTime 06/11/2024 159.385 cm 35 kg/m2 88779.1 g irasema jacobson [facility] 06/11/2024 09:10:06 Social History None recorded. Functional Status None recorded. Mental Status None recorded. Family History Nothing Reported. Medical History No medical history recorded. Gynecological HistoryNo gynecological history recorded. Obstetrics History GPAL:G 0 P 0 0 0 0 Past Encounters Encounter ID Performer Location Encounter Start Date Encounter Closed Date Diagnosis/Indication Diagnosis SNOMED-CT Code Diagnosis ICD10 Code Diagnosis Note [id number] [facility] [address] [place] [address] 02/18/2024 08:40:56 03/01/2024 14:53:03 Trigger finger of right hand [id number] 5239716 M65.30 [id number] GAURANG L[facility] [address] [place] [address] 06/11/2024 09:04:34 06/22/2024 15:26:56 Knee joint prosthesis present [id number] 02 Z96.651 Health Concerns Section Related Observation LastModified by Organization Detai ls LastModified Time None Recorded Concern Status LastModified by Organization Details LastModified Time None Recorded Advance Directives Directive None Recorded Payers Encounter Date Sequence Insurance Name Policy Number Policy Perez Covered Member ID Perez Member ID Guarantor Name 02/18/[address] [place] [address] [id number] Chloé Joualatjuany [id number] Chloé Mims Apualatl 06/11/[address] [place] [address] [id number] Chloé Mims Apualatl [id number] Chloé Arroyo Notes Date Note Type Note Provider Name and Address Organization Details Recorded Time 02/18/2024 text/html 53 yo female see n in f/u for R trigger thumb, has been treated with 1 cortisone injection in Apr 2023, which gave her about 6 months of relief. Here today for second injection Flavia Justice MD [address] [place] [address] [address], [place], [address], [facility] 02/18/2024 09:20:24 06/11/2024 text/html I am seeing the patient today under the supervision of Dr. Griffin who was available but who did not see the patient. HPI: Chloé presents to the office today for an evaluation of her right knee. She is status post right total knee arthroplasty performed in 2022. She recently developed pain without a precipitating event. No recent trauma. Currently her symptoms have resolved. She indicates that she had pain over the anterior lateral aspect of the knee for approximately 2 weeks. She also has some minor discomfort in her IT band. She denies difficulty with weightbearing activities. No instability. She did not take any medication for her pain. She is here to ensure that her total knee arthroplasty looks okay. The patient symptoms have resolved since she scheduled her appointment. PMH/PSH/MEDS/ALL/FMH /SOC HX/ROS are reviewed in detail per my medical intake sheet. General Exam: Vital signs are as noted below Mental status: Alert and lucid. Normal insight, affect and grooming. CORN COOKER: Gross motor coordination is intact. No spasticity or clonus noted. EXAMINATION: The patient is well appearing and in no apparent distress. Alert and oriented x3. Gait is antalgic. {{Right* Left}} knee reveals a surgical scar over the anterior knee, otherwise no deformity upon inspection. No joint effusion, edema, erythema, ecchymosis, or lesions. Neurovascularly intact. No localized tenderness. ROM is 0-120 degrees. No crepitus noted. Stability intact with anterior, posterior, and varus/valgus stress at both 0 and 30 degrees of flexion. 5/5 strength. Calf/leg compartments soft and compressible. Labs performed on 06/04/2024 reveal a normal WBC, sed rate, and CRP. X-rays ordered, obtained and reviewed at [facility] today include 3 views of the right knee. Images reveal total knee arthroplasty components to be in good position and without evidence of loosening. No acute fracture or lesion. IMPRESSION: Status post right total knee arthroplasty PLAN: Clinically her knee looks great today. She is weightbearing without any difficulty. I informed her that if her pain returns she should call the office. All questions answered. Yarely Storm PA-C [address] [facility] [address], [place], [address], [place] [facility] 06/11/2024 22:20:48 OBGyn Episode No OBEpisode recorded.
== END 2024-08-30 15:22 | disposition home or self-care (01) ==
LOC: HO.HOP 10:34
PROVIDERS: PCP Family Medicine; Visit Provider Psychiatry & Neurology Psychiatry
DX: F31.81 Bipolar II disorder (principal); K21.9 Gastro-esophageal reflux disease without esophagitis
CPT/HCPCS: 90833; 99213

== ENCOUNTER 2025-02-25 15:30 | Outpatient (AMB) | payer OTHER, SELFPAY ==
--- NOTE | 2025-02-25 11:08 | MHC.OFFVISPS ---
Intake Intake Visit Reasons: depression Allergies gluten Allergy (Verified 10/18/23 11:15) Gastrointestinal Upset grape Allergy (Verified 10/18/23 11:15) Numbness NSAIDS (Non-Steroidal Anti-Inflamma Adverse Reaction (Verified 10/18/23 11:15) Gastrointestinal Hemorrhage HPI- Psychiatric Chief Complaint: depression HPI Narrative: Patient is a 54-year-old female history of bipolar 2. Pt seen in f/u son had child at 1 point he was born female ident as male. Pts son has difficult time with this.This grand son lives in [facility] [facility]. Patient has been interviewing for a new position has been somewhat excited about that. Mood generally stable no significant cycling has been able to get off Ambien. No new medical concerns. No significant manic or depressive sx Past Psychiatric History: History of significant depression with agitation diagnosed bipolar question of ADD was previously on Seroquel Mental Status Exam Mental Status Exam Narrative: Mental Status Exam Narrative: Appearance: Casually dressed Behavior: Cooperative appropriate psychomotor: Within normal limits Speech: Normal volume and prosody Thought proccess logical and goal-directed Thought content: Future oriented focused on relations with her grandson that was adopted focused on interview for new position Mood: some anxiety ok Affect: Appropriate to mood SI:denies HI:denies VH/AH:none Delusions: None Insight/judgment: Good insight and judgment Memory/cog: Intact Telehealth Telehealth Location of provider rendering services: practice address Location of patient: other (work) Patient Identification confirmed using: Name, : Yes Telehealth method: video Patient verbally consented to treatment: Yes Patient verbally consented to billing insurance company: Yes Minutes spent on Phone/Video with Pt.: 32 Assessment and Plan Assessment & Plan (1) Bipolar 2 disorder: Status: Acute Code(s): F31.81 - Bipolar II disorder (2) H/O gastric bypass: Status: Acute Code(s): Z98.84 - Bariatric surgery status Plan Patient stable on current regimen no complaints of side effects things stable at home in her relationship with her Continue Lamictal and oxcarbazepine no change indicated Counseling and coordination of Care Details-Self Mgmt counseling: family related issues Medication management counseling: Effectiveness, Side effects and Dosing range Diagnosis and Prognosis Counseling: Adequacy of current interventions Details: I spent [39] minutes reviewing the record, seeing the patient and documenting in the medical record. Counseling provided to the patient/caregiver as outlined below. Addressed patient/caregiver concerns regarding current medication regime including effective adherence. Addressed patient/caregiver concerns regarding diagnosis and prognosis including accuracy of diagnosis, prognosis over time, impact of diagnosis. Addressed patient/caregiver concerns regarding impact of recent stressors. [facility] Medical History (Updated 08/30/24 @ 10:58 by Aleksandar Chavez MD) GERD (gastroesophageal reflux disease) Bipolar 2 disorder Surgical History H/O gastric bypass Social History (System 03/27/23 @ 14:57 by Darlin Arcos) Household Members: Spouse Social History: pt working pt works for marijuana [employer] . 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 Family history bipolar disorder Substance History: History of alcohol abuse Coding Level of Care Code Tele Est Pt Level 4 (98452) Diagnoses Bipolar 2 disorder F31.81 H/O gastric bypass Z98.84
--- OUTSIDE RECORDS SUMMARY | 2025-02-25 15:32 | XMS_ITS | Encounter Summary ---
Author Organization [facility] Address [address] [place] [address] Phone Care Team Providers Care C Engineer Name Role Phone Jazmine Nath MD Primary Care Provider + Encounter Details Date Type Department Care Team (Late st Contact Info) Description 02/13/2023 Procedure Pass [facility] Admitting Dept Virtual Department [address] [place] [address] Social History Tobacco Use Types Packs/Day Years Used Date Smoking Tobacco: Never Smokeless Tobacco: Never Alcohol Use Standard Drinks/Week Comments Yes 0 (1 standard drink = 0.6 oz pur e alcohol) occasional Education Answer Date Recorded Are you interested in more education? Not on haris e 09/22/2022 Are you concerned about learning? Not on file 09/22/2022 No 09/22/2022 No 09/22/2022 Digital Access Answer Date Recorded No 10/18/2022 No 10/18/2022 Reliable internet access at home? Not on file 10/18/2022 Device with a working camera? Not on file Comments Unknown Sex and Gender Information Value Date Recorded Sex Assigned at Female 10/20/2018 8:15 AM EDT Legal Sex Female 5:14 PM EST Gender Identity Female 10/20/2018 8:15 AM EDT Sexual Orientation Lesbian or Rangel 10/20/2018 8: 15 AM EDT documented as of this encounter Plan of Treatment Not on file documented as of this encounter Visit Diagnoses Not on filedocumented in this encounter Care Teams C Engineer Relationship Specialty Start Date End Date Jazmine Nath MD [email or web address] PCP - General Family Medicine 09/28/18 documented as of this encounter Additional Source Comments The information contained in this document represents components of the legal health record. It is not the complete legal health record.[facility]
--- OUTSIDE RECORDS SUMMARY | 2025-02-25 15:32 | XMS_ITS | Clinical Summary ---
Author Organization [facility] Address [address] [place] [phone] Phone Care Team Providers Care Roof Promenade Tile Setter Name Role Phone Jazmine Nath MD Primary Care Provider + Allergies Active Allergy Reactions Criticality Noted Date Comments Gluten 08/05/2023 Grape 08/05/2023 Medications OXcarbazepine (TRILEPTAL) 300 MG tablet Take 600 mg by mouth nightly at bedtime. Active zolpidem (AMBIEN CR) 6.25 MG CR tablet Take 6.25 mg by mouth nightly at bedtime as needed for sleep. Active gabapentin (NEURONTIN) 100 MG capsule TAKE 2 CAPSULES BY MOUTH IN THE MORNING AND 1 CAPSULE IN THE EVENING 07/28/2023 Active lamoTRIgine (LAMICTAL) 150 MG IMMEDIATE release tablet Take 150 mg by mouth 2 (two) times a day. Active methocarbamoL (ROBAXIN) 500 MG tablet Take 500 mg by mouth 2 (two) times a day. Active zolpidem (AMBIEN) 10 mg tablet TAKE 1/2 - 1 TABLET BY MOUTH AT BEDTIME NEEDED FOR INSOMNIA Active Active Problems Problem Noted Date Diagnosed Date Postmenopausal bleeding 08/05/2023 Overview (08/05/2023): Risk factors for EIN ; endometrium 5 mm on outside scan with fluid in the endocervix but not endometrial cavity per report Assessment & Plan (08/05/2023 5:48 PM EDT): Suspect fluid in the endocervix is probably related more to stenosis and is not necessarily pathological Recommend repeating the ultrasound both to recheck the lining and recheck the cyst. It would be impossible to perform sonohysterogram, so tissue sampling is warranted it would have to be D&C in the operating room, and even in that situation dilation may proved to be very difficult Cyst of left ovary 08/05/2023 Overview (08/05/2023): 3.9 cm cyst on the left with 1 thin septation Assessment & Plan (08/05/2023 5:49 PM EDT): Uncertain if this is causing pain, recommend repeat ultrasound and tumor markers at this time to determine if any surgery is warranted based on those findings Social History Tobacco Use Types Packs/Day Years Used Date Smoking Tobacco: Never Smokeless Tobacco: Never Tobacco Cessation:Counseling Given: Not Answered Alcohol Use Standard Drinks/Week Comments Yes 0 [...] with a working camera? Not on file Intimate Partner Violence Answer Date R ecorded Are you denied basic needs s uch as food, clothing, or medical care? No 09/04/2023 In the past 12 months have y ou been in a relationship with a person who hurts, threatens, or tries to control you? No 09/04/2023 Are you denied basic needs s uch as food, clothing, or medical care? No 09/04/2023 In the past 12 months have y ou been in a relationship with a person who hurts, threatens, or tries to control you? No 09/04/2023 Comments No Sex and Gender Information Value Date Recorded Sex Assigned at Female 10/20/2018 8:15 AM EDT Legal Sex Female 5:14 PM EST Gender Identity Female 10/20/2018 8:15 AM EDT Sexual Orientation Lesbian or Rangel 10/20/2018 8: 15 AM EDT Last Filed Vital Signs Vital Sign Reading Time Taken Comments Blood Pressure 113/75 09/04/2023 1:16 PM EDT Pulse 57 09/04/2023 1:16 PM EDT Temperature 36.2 C (97.2 F) 09/04/2023 1:02 PM EDT Respiratory Rate 18 09/04/2023 1:16 PM EDT Oxygen Saturation 100% 09/04/2023 1:16 PM EDT Inhaled Oxygen Concentration - - Weight 81.6 kg (180 lb) 09/03/2023 10:35 AM EDT Height 162.6 cm (5' 4 ) 09/03/2023 10:35 AM EDT Body Mass Index 30.9 09/03/2023 10:35 AM EDT Plan of Treatment Health Maintenance Due Date Last Done Comments LIPID PANEL 1969 DEPRESSION SCREENING 1981 HEPATITIS C SCREENING 1987 HIV ONE-TIME SCREENING (18-65 YEARS) 1987 PAP SMEAR 1990 MAMMOGRAM 2009 COLOGUARD 2014 FIT TEST 2014 FOBT 2014 SIGMOIDOSCOPY 2014 VIRTUAL COLONOSCOPY 2014 PNEUMOCOCCAL VACCINES (50+ years) (1 of 1 - PCV) 2019 Adult Td,Tdap Booster 05/25/2020 05/25/2010 ZOSTER VACCINES (2 of 2) 05/12/2021 03/17/2021 SCREENING FOR DIABETES 01/23/2024 01/22/2021 INFLUENZA VACCINE (#1) 2024 COVID-19 VACCINE ( season) 2025 12/07/2021, 04/27/2021, 08/23/2020, Additional history exists COLONOSCOPY 09/03/2033 09/04/2023 COLORECTAL CANCER SCREENING 09/03/2033 SMOKING STATUS SCREENING (Once After 26 Yrs) Completed 09/04/2023 HEPATITIS A VACCINES Aged Out No long er eligible based on patient's age to complete this topic HIB VACCINES Aged Out No longer eligi ble based on patient's age to complete this topic MENINGOCOCCAL VACCINES (ACWY) Aged Out No longer eligible based on patient's age to complete this topic MENINGOCOCCAL VACCINES (B) Aged Out N o longer eligible based on patient's age to complete this topic Medical Devices Implanted Type Area Channel Marketing Coordinator Device Identifier Shelf Expiration Date Model / Serial / Lot Right Knee Gastric Bipass Clips Right Shoulder Procedures Procedure Name Priority Date/Time Associated Diagnosis Comments ENDOSCOPY, COLON 09/04/2023 12:1 6 PM EDT from Last 3 Months or Most Recently Relevant to Health Maintenance Results * ENDOSCOPY, COLON (09/04/2023 12:16 PM EDT) Narrative Transcriptions Swetha Man MD, MPH - 09/04/2023 12:16 PM EDT [facility] Patient Name: Chloé Arroyo Attending MD:: SWETHA MAN MD, Procedure Date: 09/04/2023 12:16 PM Date of : 1970 Age: 53 Admit Type: Outpatient Gender: Female Room: [place] [address] Referring MD: Jazmine Nath MD Exam Type: Colonoscopy Indications: Screening for colorectal malignant neoplasm Medications: Monitored Anesthesia Care Procedure: Informed consent was obtained from the patientafter discussion of the indications, limitations, alternatives, benefits, and risks of the procedure. Risks specifically discussed include but are not limited to medication reactions, missed lesions, bleeding, perforation, or the need for emergent surgery. Throughout the procedure, the patient's blood pressure, pulse, end-tidal CO2, and oxygensaturations were monitored continuously. The Colonoscope was introduced through the anus and advanced to the cecum, identified by appendiceal orifice and ileocecal valve. The colonoscopy was performed without difficulty. The patient tolerated the procedure well. The quality of the bowel preparation was evaluated using the BBPS (BostonBowel Preparation Scale) with scores of: Right Colon = 2 (minor amount of residual staining, small fragmentsof stool and/or opaque liquid, but mucosa seen well), Transverse Colon = 3 (entire mucosa seen well withno residual staining, small fragments of stool oropaque liquid) and Left Colon = 3 (entire mucosa seen well with no residual staining, small fragments of stoolor opaque liquid). The total BBPS score equals 8. The quality of the bowel preparation was fair. Complications: No immediate complications. Findings: The perianal and digital rectal examinations were normal. Extensive amounts of semi-liquid stool was found in the transverse colon, in the ascending colon and in the cecum, interfering with visualization. A 5 mm polyp was found in the transverse colon. The polyp was sessile. The polyp was removed with acold snare. Resection and retrieval were complete. Left sided diverticulosis. The exam was otherwise without abnormality ondirect and retroflexion views. Impression: - Preparation of the colon was fair. - Stool in the transverse colon, in the ascending colon and in the cecum. - One 5 mm polyp in the transverse colon, removedwith a cold snare. Resected and retrieved. - Left sided diverticulosis. - The examination was otherwise normal on directand retroflexion views. Recommendation: - Await pathology results. - Repeat colonoscopy in 5 years for surveillance. Recommend TWO day prep for next procedure. Dr Swetha Man SWETHA MAN MD 09/04/2023 1:02:54 PM This report has been signed electronically. Number of Addenda: 0 Note Initiated On: 09/04/2023 12:16 PM Procedure Code(s): --- Professional --- 73285, Colonoscopy, flexible; with removal of tumor(s), polyp(s), or other lesion(s) by snare technique --- Technical --- 76898, Colonoscopy, flexible; with removal of tumor(s), polyp(s), or other lesion(s) by snare technique Diagnosis Code(s): --- Professional --- Z12.11, Encounter for screening for malignantneoplasm of colon D12.3, Benign neoplasm of transverse colon (hepatic flexure or splenic flexure) --- Technical --- Z12.11, Encounter for screening for malignantneoplasm of colon D12.3, Benign neoplasm of transverse colon (hepatic flexure or splenic flexure) CPT copyright 2021 [employer]. All rights reserved. The codes documented in this report are preliminary and upon flavoring oil filterer reviewmay be revised to meet current compliance requirements. Procedure Date: 09/04/2023 12:16:36 PM [address] [place] [address] Jazmine Nath MD GI PROCEDURE ORDERABLES Final Result from Last 3 Months or Most Recently Relevant to Health Maintenance Insurance [facility] [address] [place], [place] [address] [place], [place] [address] [place], [place] [address] O Care Teams Roof Promenade Tile Setter Relationship Specialty Start Date End Date Jazmine Nath MD [email or web address] PCP - General Family Medicine 09/28/18 Additional Source Comments The information contained in this document represents components of the legal health record. It is not the complete legal health record.[facility]
--- OUTSIDE RECORDS SUMMARY | 2025-02-25 15:32 | XMS_ITS | Encounter Summary ---
Author Organization [facility] Address [address] [place] [address] Phone Care Team Providers Care Post Tensioning Ironworker Name Role Phone Jazmine Nath MD Primary Care Provider + Encounter Details Date Type Department Care Team (Latest Contact Info) Description 03/16/2021 Transcribe Orders Virtual Department [address] [place] [address] Pearl Lopez PA [address] [place] [address] Radiculopathy, lumbar region (Primary Dx) Social History Tobacco Use Types Packs/Day Years Used Date Smoking Tobacco: Never Smokeless Tobacco: Never Alcohol Use Standard Drinks/Week Comments Yes 0 (1 standard drink = 0.6 oz pur e alcohol) occasional Comments Unknown Sex and Gender Information Value Date Recorded Sex Assigned at Female 10/20/2018 8:15 AM EDT Legal Sex Female 5:14 PM EST Gender Identity Female 10/20/2018 8:15 AM EDT Sexual Orientation Lesbian or Rangel 10/20/2018 8: 15 AM EDT documented as of this encounter Plan of Treatment Not on file documented as of this encounter Visit Diagnoses Diagnosis Radiculopathy, lumbar region- Primary Thoracic or lumbosacral neuritis or radiculitis, unspecified documented in this encounter Care Teams Post Tensioning Ironworker Relationship Specialty Start Date End Date Jazmine Nath MD [email or web address] PCP - General Family Medicine 09/28/18 documented as of this encounter Additional Source Comments The information contained in this document represents components of the legal health record. It is not the complete legal health record.[facility]
--- OUTSIDE RECORDS SUMMARY | 2025-02-25 15:32 | XMS_ITS | Clinical Summary ---
Author Organization [facility] Address [address] [place] [address] Care Team Providers Care Research Aide Name Role Phone Jazmine Nath MD Primary Care Provider + [phone] Allergies No known active allergies Medications Medication [...] 58 06/20/2022 2:07 PM EST Temperature 36.2 C (97.2 F) 06/20/2022 2:07 PM EST Respiratory Rate 18 06/20/2022 2:07 PM EST [...] (1 of 2) 2019 Influenza Vaccine (#1) 2025 Pneumococcal Vaccine Aged Out No long er eligible based on patient's age to complete this topic RSV Ped < 20 months Aged Out No longe r eligible based on patient's age to complete this topic Care Teams Research Aide Relationship Specialty Start Date End Date Jazmine Nath MD PCP - General Family Medicine 8/29/17
--- OUTSIDE RECORDS SUMMARY | 2025-02-25 15:32 | XMS_ITS | Clinical Summary ---
Author Organization [facility] Address [address] [place] [address] Care Team Providers Care Teacher Industrial Arts Name Role Phone Jazmine Nath MD Primary Care Provider + Medical History Medical History Date Comments Palpitations 07/15/2011 DX:Palpitations Bipolar 1 disorder (CMS/HCC V24, CMS/HCC V28) DX:Bipolar 1 disorder (HCC) Obesity, unspecified 07/15/2011 DX:Obesity, unspecified Family History Medical History Relation Name Comments Other: cardiomyopathy Maternal Grandmother early Other: sudden cardiac Uncle 1 young, [place] vs Vfib Relation Name Status Comments Maternal [...] Last Done Comments Breast Cancer Screening 1970 Colorectal Cancer Screening: Colonoscopy 1969 DTaP,Tdap,and Td Vaccines (1 - Tdap) 1988 Hepatitis B Vaccines (1 of 3 - 19+ 3-dose series) 1988 Cervical Cancer Screening: P ap Smear 1990 Pneumococcal Vaccine: 50+ Ye ars (1 of 1 - PCV) 2019 Zoster Vaccines (1 of 2) 2019 Cholesterol Screening (Lipid Panel) 06/24/2023 HIV Screening 06/24/2023 Hepatitis C Screening 06/24/2023 Social Influencers of Health Screening 06/24/2023 Depression Screening 05/26/2024 COVID-19 Vaccine (2023-2 5 season) 2025 Influenza Vaccine (#1) 2025 RSV Immunization Adult Patie nts (1 - 1-dose 75+ series) 2044 HIB Vaccines Aged Out No longer eligi [...] age to complete this topic Meningococcal B Vaccine Aged Out No l onger eligible based on patient's age to complete this topic RSV Immunization Patients Un cleopatra 20 months Aged Out No longer eligible b ased on patient's age to complete this topic Varicella Vaccines Aged Out No longer eligible based on patient's age to complete this topic Care Teams Teacher Industrial Arts Relationship Specialty Start Date End Date Jazmine Nath MD [address] [place] [address] PCP - General Family Medicine 01/21/17
--- OUTSIDE RECORDS SUMMARY | 2025-02-25 15:32 | XMS_ITS | Encounter Summary ---
Author Organization [facility] Address [address] [place] [phone] Phone Care Team Providers Care Slat Twister Name Role Phone Jazmine Nath MD Primary Care Provider + Encounter Details Date Type Department Care Team (Latest Contact Info) Description 09/28/2018 Ancillary Orders [facility], X-Ray - [address] [address] Nasima Crawford PA [address] [place] [address] [email or web address] Spondylosis of cervical region without myelopathy or radiculopathy Social History Tobacco Use Types Packs/Day Years Used Date Smoking Tobacco: Never Assessed Comments Unknown Sex and Gender Information Value Date Recorded Sex Assigned at Female 10/20/2018 8:15 AM EDT Legal Sex Female 5:14 PM EST Gender Identity Female 10/20/2018 8:15 AM EDT Sexual Orientation Lesbian or Rangel 10/20/2018 8: 15 AM EDT documented as of this encounter Plan of Treatment Not on file documented as of this encounter Results * XR CERVICAL SPINE 2-3 VIEWS (09/28/2018 12:34 PM EDT) Anatomical Region Laterality Modality C-spine Radiographic Daisha ging 09/28/2018 12:3 6 PM EDT Impressions 09/28/2018 12:40 PM EDT Grade 1 C4-5 spondylolisthesis which is stable in extension but reduces in flexion. Very minimal motion at the C2-3-4 level may be physiologic. No additional instability. POS - [id number] Narrative 09/28/2018 12:40 PM EDT COMPARISON: 01/02/2017 MR FINDINGS: Lateral views were obtained in neutral, flexion, and extension positioning. The chronic retrolisthesis of the C4 relation to C5 vertebral bodies is measured at 4 mm in the neutral position, reducing to approximately 2 mm in flexion and measuring approximately 4 mm in extension. In the neutral position there is an estimated 2 mm of anterolisthesis of the C3 in relation to C4 vertebral bodies which does not change appreciably during flexion but seems to reduce completely in extension. No additional instability noted. There are degenerative disc changes from the C4-C7 levels. Procedure Note Fabby Levy MD - 09/28/2018 COMPARISON: 01/02/2017 MR FINDINGS: Lateral views were obtained in neutral, flexion, and extensionpositioning. The chronic retrolisthesis of the C4 relation to [id number] bodies is measured at 4 mm in the neutral position, reducing toapproximately 2 mm in flexion and measuring approximately 4 mm inextension. In the neutral position there is an estimated 2 mm ofanterolisthesis of the C3 in relation to C4 vertebral bodies which doesnot change appreciably during flexion but seems to reduce completely inextension. No additional instability noted. There are degenerative discchanges from the C4-C7 levels. IMPRESSION: Grade 1 C4-5 spondylolisthesis which is stable in extension but reduces inflexion. Very minimal motion at the C2-3-4 level may be physiologic. Noadditional instability. 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 It is not the complete legal health record.[facility]
--- OUTSIDE RECORDS SUMMARY | 2025-02-25 15:32 | XMS_ITS | Encounter Summary ---
Author Organization [facility] Address [address] [place] [phone] Phone Care Team Providers Care Ferryboat Helper Name Role Phone Jazmine Nath MD Primary Care Provider + Encounter Details Date Type Department Care Team (Late st Contact Info) Description 09/04/2023 Procedure Pass [facility] Endoscopy Admitting Dept Virtual Department [address] [place] [address] Social History Tobacco Use Types Packs/Day Years [...] on filedocumented in this encounter Care Teams Ferryboat Helper Relationship Specialty Start Date End Date Jazmine Nath MD [email or web address] PCP - General Family Medicine 09/28/18 documented as of this encounter Additional Source Comments The information contained in this document represents components of the legal health record. It is not the complete legal health record.[facility]
== END 2025-02-25 15:31 | disposition home or self-care (01) ==
LOC: HO.HOP 15:30
PROVIDERS: PCP Family Medicine; Visit Provider Psychiatry & Neurology Psychiatry
DX: F31.81 Bipolar II disorder (principal); Z98.84 Bariatric surgery status
CPT/HCPCS: 99214